=== PATIENT | female | born 1985 | race African-American/Black ===

== ENCOUNTER 2016-09-27 20:45 | Emergency (ER) | payer SELFPAY ==
[~2016-09-27] VITALS: Ht 157.5 cm; Wt 95.3 kg
[2016-09-27] MEDS ORDERED: fentaNYL 100 mcg/2 mL IV ONE (21:00)
[2016-09-27 21:19] VITALS: BP 125/88
[2016-09-27 21:53] LABS: TROPONIN I < 0.30 ng/mL (<=0.30)
[2016-09-27 21:54] LABS: BASOPHILS % (AUTO) 1.7 % (0.0-2.0); EOSINOPHILS % (AUTO) 0.3 % (0.0-3.0); LYMPHOCYTES % (AUTO) 19.3 % (20.0-45.0); MEAN CORPUSCULAR HEMOGLOBIN 33.3 PG (27.0-31.0); MEAN CORPUSCULAR HGB CONC 35.1 G/DL (32.0-36.0); MEAN CORPUSCULAR VOLUME 95 FL (80-99); MEAN PLATELET VOLUME 9.4 FL (6.5-10.1); MONOCYTES % (AUTO) 15.6 % (1.0-10.0); NEUTROPHILS % (AUTO) 63.2 % (45.0-75.0); PLATELET COUNT 153 K/UL (150-450); RED BLOOD COUNT 3.72 M/UL (4.20-5.40); RED CELL DISTRIBUTION WIDTH 10.8 % (11.6-14.8); WHITE BLOOD COUNT 5.4 K/UL (4.8-10.8)
[2016-09-27 21:56] LABS: ALANINE AMINOTRANSFERASE 19 U/L (3-33); ALBUMIN/GLOBULIN RATIO 1.3 (1.0-2.7); ANION GAP 13 (5-15); ASPARTATE AMINO TRANSFERASE 21 U/L (5-40); CARBON DIOXIDE 22 mEQ/L (20-30); CHLORIDE 100 mEQ/L (98-107); CREATININE 0.8 mg/dL (0.5-0.9); GLOMERULAR FILTRATION RATE > 60 mL/min (>60); HEMOLYSIS 6; POTASSIUM 3.8 mEQ/L (3.4-4.9); SODIUM 135 mEQ/L (135-145); TOTAL PROTEIN 6.9 g/dL (6.6-8.7)
[2016-09-27 21:57] LABS: APPEARANCE,URINE CLEAR; KETONES,URINE NEGATIVE (NEGATIVE); LEUKOCYTE ESTERASE ,URINE NEGATIVE (NEGATIVE); NITRITE,URINE NEGATIVE (NEGATIVE); PH,URINE 7 (4.5-8.0); PROTEIN,URINE NEGATIVE (NEGATIVE); UROBILINOGEN,URINE NORMAL MG/DL (0.0-1.0)
[2016-09-27 22:00] VITALS: BP 148/84
[2016-09-27 22:06] LABS: CKMB 1.8 ng/mL (< 3.8)
--- NOTE | 2016-09-27 22:20 | Emergency Room Report ---
History of Present Illness General Chief Complaint: Chest Pain Source: Patient Present Illness HPI 30YOF walk-in with 1 week of frontal headache, nausea/vomiting, "chest burning" and body aches. Fever measured was 103F at home. Denies sick contacts. Foreign travel to [facility] 2 months prior. Denies medical problems. Denies drug use. Past surgical history was "prolonged stay in hospital after giving ." Allergies: Coded Allergies: No Known Allergies (Unverified , 09/27/16) Patient History Past Medical History: none Past Surgical History: none Pertinent Family History: none Social History: Denies: alcohol use, drug use, smoking Last Menstrual Period: unk Now: No Immunizations: UTD Reviewed Nursing Documentation: PMH: Agreed, PSxH: Agreed Nursing Documentation-PMH Past Medical History: No Stated History Review of Systems All Other Systems: negative except mentioned in HPI Physical Exam Vital Signs Date Time Temp Pulse Resp B/P Pulse Ox O2 Delivery O2 Flow Rate FiO2 09/27/16 20:53 101.5 89 125/88 09/27/16 21:19 18 09/27/16 21:19 98 Room Air Sp02 EP Interpretation: reviewed, normal General Appearance: normal inspection, well appearing, no apparent distress, alert, GCS 15, non-toxic Head: normocephalic, atraumatic Eyes: bilateral eye EOMI, bilateral eye PERRL ENT: normal ENT inspection, hearing grossly normal, normal voice Neck: normal inspection, full range of motion, supple, no bony tend Respiratory: normal inspection, lungs clear, normal breath sounds, no respiratory distress, no retraction, no wheezing Cardiovascular #1: regular rate, rhythm, no edema Gastrointestinal: normal inspection, normal bowel sounds, non tender, soft, no guarding, no hernia Genitourinary: no CVA tenderness Musculoskeletal: normal inspection, back normal, normal range of motion, Ana' s Sign negative Neurologic: normal inspection, alert, oriented x3, responsive, hearing aid repairer III-XII nml as tested, motor strength/tone normal, speech normal Skin: normal inspection, normal color, no rash Medical Decision Making Diagnostic Impression: Primary Impression: Chest pain Qualified Codes: R07.9 - Chest pain, unspecified Additional Impressions: Fever Qualified Codes: R50.9 - Fever, unspecified Headache Qualified Codes: G44.209 - Tension-type headache, unspecified, not intractable ER Course Fever - CXR, UA negative for PNA - Low suspicion for meningitis given symptoms for 1 week, no meningismus. No focal neuro deficits. - No leuks. Lactate normal. Unlikely sepsis. - Resolved - Feels much better - Likely viral syndrome Chest pain - ECG no ischemia. Troponin 0. - CXR: No PNA or PTX Headache - likely tension based - CT Head negative for trauma, SAH - Resolved with medication DC home with Ibuprofen, close PMD followup Understands to return with worsening symptoms Chest X-Ray Diagnostic Results Chest X-Ray Diagnostic Results : Chest X-Ray Ordered: Yes # of Views/Limited/Complete: 1 View Indication: Chest Pain EP Interpretation: Yes Interpretation: no consolidation, no effusion, no pneumothorax, no acute cardiopulmonary disease Impression: No acute disease Interpreting ER Provider: Electronically signed by Dr Ochoa Last Vital Signs Date Time Temp Pulse Resp B/P Pulse Ox O2 Delivery O2 Flow Rate FiO2 09/27/16 22:07 100.4 09/27/16 22:00 87 19 148/84 97 Room Air Status: improved Disposition: HOME, SELF-CARE Scripts Ibuprofen* (MOTRIN*) 600 Mg Tablet 600 MG ORAL THREE TIMES A DAY for pain, fever for 7 Days, #30 TAB 0 Refills Prov: DESHAWN OCHOA M.D. 09/27/16 Referrals: NOT CHOSEN FREDDIE/,REFERRING (PCP) DESHAWN OCHOA M.D. Sep 27, 2016 22:19
[2016-09-27] MEDS ORDERED: Nitroglycerin Subl 0.4mg tab (Bottle Of 25) SL PRN (22:45)
[2016-09-27] MEDS ORDERED: DuoNeb 0.5-3(2.5)mg/3ml neb HHN PRN (22:45)
[2016-09-27] MEDS ORDERED: Morphine Sulfate 2mg/ml Inj IVP PRN (22:45)
[2016-09-27] MEDS ORDERED: Miralax 17gm pkt ORAL PRN (22:45)
[2016-09-27 23:00] VITALS: BP 107/63
[2016-09-27] MEDS ORDERED: Ketorolac 30mg Inj IV ONE (23:00)
[2016-09-27] MEDS ORDERED: Metoclopramide 10mg/2ml Inj IVP ONE (23:00)
[2016-09-27] MEDS ORDERED: IBUPROFEN600 MG ORAL (23:29)
[2016-09-27 23:35] VITALS: BP 107/63
[2016-09-28] MEDS ORDERED: Vancomycin 1 GM in D5W 275 ML IV SCH (00:30)
[2016-09-28] MEDS ORDERED: Heparin 5000 units/ml inj SUBQ SCH (09:00)
[2016-09-28] MEDS ORDERED: Cefepime HCl 2 GM in D5W 110 ML IV SCH (09:00)
--- NOTE | 2016-09-28 09:00 | Diagnostic Imaging Report ---
Indication: Altered mental status Technique: Contiguous 5 mm thick transaxial imaging of the head obtained in a Siemens Sensation [address] scanner. Soft tissue and bone windows generated. Total Dose length Product (DLP): [address] Dose Index Volume (CTDIvol): 70.38 mGy Comparison: none Findings: The size and configuration of the cortical sulci, basal cisterns, and ventricles are within normal limits for age. There is no mass effect, midline shift, or edema identified. There is no evidence of acute hemorrhage or abnormal intra-axial or extra-axial fluid collections. The bones and soft tissues are unremarkable. Impression: No mass effect, edema or acute bleed. The CT scanner at [facility] is accredited by the [employer] and the scans are performed using dose optimization techniques as appropriate to a performed exam including Automatic Exposure control.
--- NOTE | 2016-09-28 09:12 | Diagnostic Imaging Report ---
Indication: Dyspnea Comparison: None A single view chest radiograph was obtained. Findings: Cardiomediastinal appearance is within normal limits for age. Pulmonary vascularity is appropriate. The diaphragmatic contour is smooth and costophrenic angles are sharp. No pleural effusions are identified. The bones are unremarkable. Impression: No acute findings
== END 2016-09-27 23:37 | disposition home or self-care (01) ==
LOC: EMR 21:01 → CANBEDREQ 23:21 → EMR 23:37
DX: R07.9 Chest pain, unspecified (principal); R50.9 Fever, unspecified; G44.209 Tension-type headache, unspecified, not intractable
CPT/HCPCS: 36415; 70450; 71010; 80053; 80300; 81003; 81025; 82550; 82553; 83605; 84484; 85025; 87040; 93005; 96374; 96375; 99284; J1885; J2405; J2765; J3010